=== PATIENT | male | born 1950 | race Caucasian/White ===

== ENCOUNTER 2019-03-18 16:48 | Inpatient (IN) ==
[2019-03-18] MEDS ORDERED: methylPREDNISolone 125 MG/2 ML VIAL IV STA (16:58)
[2019-03-18] MEDS ORDERED: ALBUT/IPRATROP 3MG/0.5MG NEB 3 ML VIAL INH STA (16:58)
[2019-03-18 17:17] LABS: Basophils # (auto) 0.03 K/uL (0-0.2); Basophils % (auto) 0.3 %; Eosinophils # (auto) 0.04 K/uL (0-0.5); Eosinophils % (auto) 0.3 %; Hematocrit (blood only) 41.9 % (42-52); Hemoglobin 14.8 g/dL (14.0-18.0); Immature Granulocytes # (auto) 0.03 K/uL (0.00-0.02); Immature Granulocytes % (auto) 0.3 %; Lymphocytes # (auto) 1.98 K/uL (1.2-3.4); Lymphocytes % (auto) 17.1 %; Mean Corpuscular Hemoglobin 31.7 pg (25-34); Mean Corpuscular Hgb Conc 35.3 g/dL (32-36); Mean Corpuscular Volume 89.7 fL (80-100); Mean Platelet Volume 9.4 fL (7.4-10.4); Monocytes # (auto) 1.25 K/uL (0.11-0.59); Monocytes % (auto) 10.8 %; Neutrophils # (auto) 8.28 K/uL (1.4-6.5); Neutrophils % (auto) 71.2 %; Platelet Count 198 K/uL (130-400); RDW Coefficient of Variation 12.5 % (11.5-14.5); RDW Standard Deviation 40.9 fL (36.4-46.3); Red Blood Count 4.67 M/uL (4.7-6.1); White Blood Count 11.61 K/uL (4.8-10.8)
[2019-03-18 17:24] LABS: Partial Thromboplastin Ratio 1.1; Partial Thromboplastin Time 28.5 Seconds (21.0-31.0); Prothrombin Time 10.5 Seconds (9.0-12.0)
[2019-03-18 17:38] LABS: Alanine Aminotransferase 36 U/L (12-78); Albumin Level 3.8 gm/dl (3.4-5.0); Aspartate Aminotransferase 18 U/L (15-37); BUN Creatinine Ratio 13.5 (10-20); Blood Urea Nitrogen 18 mg/dl (7-18); Calcium 9.6 mg/dl (8.5-10.1); Carbon Dioxide 26 mmol/L (21-32); Chloride 98 mmol/L (98-107); Creatinine Clr Calc Pharmacy 60.6 ml/min; Est GFR (African American) 61.5; Est GFR (Non-African American) 53.1; Glucose 174 mg/dl (70-99); Potassium 4.1 mmol/L (3.5-5.1); Sodium 131 mmol/L (136-145)
[2019-03-18 17:43] LABS: Albumin Globulin Ratio 0.8 (0.9-2); Alkaline Phosphatase 136 U/L (45-117); Bilirubin,Total 0.7 mg/dl (0.2-1); NT Pro B Type Natriuretic Pept 107 pg/ml (0-900); Total Protein 8.8 gm/dl (6.4-8.2); Troponin I < 0.015 ng/ml (0-0.045)
--- NOTE | 2019-03-18 18:09 | XRay Report ---
XR chest 1V portable CLINICAL HISTORY: Dyspnea COMPARISON STUDY: None FINDINGS: Mild cardiac enlargement. Basilar parenchymal infiltrative change. Minimal upper lungs are clear. IMPRESSION: Mild bibasilar parenchymal infiltrates. ACT 112: Negative or not required by law. The above report was generated using voice recognition software. It may contain grammatical, syntax or spelling errors. Electronically signed by: David Mckeon M.D. 03/18/2019 6:08 PM
[2019-03-18] MEDS ORDERED: PIPERACILLIN/TAZOBACTAM 4.5 GM/120 ML BAG IV ONE (18:31)
[2019-03-18] MEDS ORDERED: PIPERACILL/TAZOBAC CONSULT ACTIVE PRN ×2 (18:31→21:34)
[2019-03-18] MEDS ORDERED: DOXYCYCLINE HYCLATE 100 MG in DEXTROSE 5% 100 ML IV STA (18:31)
[2019-03-18 18:38] LABS: Influenza A virus by PCR Neg for Influ A (Neg); Influenza B virus by PCR Neg for Influ B (Neg)
[2019-03-18 19:03] LABS: Appearance Urine Clear (Clear); Bacteria Urine Automated Negative (Negative); Bilirubin Urine Negative (Negative); Blood Urine 1+ (Negative); Cast Urine Automated 0 /lpf (0-5); Color Urine Yellow; Epithelial Cell Urine Auto 0-5 /lpf (0-5); Glucose Urine UA 1+ (Negative); Ketones Urine 2+ (Negative); Leukocyte Esterase Urine Negative (Negative); Nitrite Urine Negative (Negative); Protein Urine 2+ (Negative); RBC Urine Automated 0-4 /hpf (0-4); Specific Gravity Urine 1.021 (1.000-1.030); Urobilinogen Urine Negative (Negative); WBC Urine Automated 0 /hpf (0-5)
[2019-03-18] MEDS ORDERED: ALBUTEROL HFA 8 GM INHALER INH PRN (20:16)
[2019-03-18] MEDS ORDERED: MECLIZINE HCL 25 MG TAB PO PRN (20:16)
[2019-03-18] MEDS ORDERED: PANCREAZE (LIPASE 10,500U) CAP PO PRN (20:30)
[2019-03-18] MEDS ORDERED: cloNIDine HCL 0.1 MG TAB PO PRN (21:34)
[2019-03-18] MEDS ORDERED: LORazepam 3 MG/6 ML VIAL IV PRN (21:34)
[2019-03-18] MEDS ORDERED: ATIVAN IV ALCOHOL WITHDRAWL IV PRN (21:34)
[2019-03-18] MEDS ORDERED: LORazepam 2 MG/4 ML VIAL IV PRN (21:34)
[2019-03-18] MEDS ORDERED: NITROGLYCERIN SL 0.4 MG/TAB TAB SL PRN (21:34)
[2019-03-18] MEDS ORDERED: LORazepam 1 MG/2 ML VIAL IV PRN (21:34)
[2019-03-18] MEDS ORDERED: ONDANSETRON INJ 2 MG/ML 2 ML VIAL IV PRN (21:34)
[2019-03-18] MEDS ORDERED: ACETAMINOPHEN 325 MG TAB PO PRN (21:34)
[2019-03-18] MEDS ORDERED: POLYETHYLENE (MIRALAX) 17 GM PACK PO PRN (21:34)
[2019-03-18] MEDS ORDERED: GABAPENTIN 1200MG ALCOHOL WITHDRAWAL LOAD PO STA (21:34)
[2019-03-18] MEDS ORDERED: GABAPENTIN 600 MG TAB PO ONE (22:00)
[2019-03-18] MEDS ORDERED: MULTI-VITAMIN INFUSION 10 ML, THIAMINE HCL 100 MG, FOLIC ACID 1 MG in SODIUM CHLORIDE 0... IV ONE (22:00)
[2019-03-18] MEDS: SODIUM CHLORIDE 0.9% 1000ML 1,000 ML IV SCH (22:13)
--- NOTE | 2019-03-18 22:28 | History and Physical Report ---
DATE OF ADMISSION: 03/18/2019 CHIEF COMPLAINT: Shortness of breath. HISTORY OF PRESENT ILLNESS: A 69-year-old male with past medical history significant for diabetes, hypertension as per patient, denies any cardiac problems, denies any lung problems, denies any kidney problems. He goes to [place]. He lives alone. He smokes 1 pack of cigarettes for 50 years. Drinks alcohol, 6 beers almost every day whenever he can go out, but in last 1 week he did not go out and he is not drinking since last 1 week as per the patient, but is not getting any withdrawal symptoms. Since last 5 days, he is getting short of breath, once in a while cough, not bringing any phlegm. He thinks maybe he had a fever at home and was getting more short of breath. He got worried and came to the hospital and found to have mild bibasilar infiltrates, possible chronic obstructive pulmonary disease exacerbation. Received breathing treatments and steroids and antibiotics. Currently, somewhat feeling better. Oxygen saturations are okay. Denies any headache, no blurred vision, no earache, no runny nose, has some sore throat, no difficulty swallowing. No odynophagia. Did not have much appetite for the last 5 days, but today he is feeling hungry. Denies any chest pain. No recent weight gain, weight loss. No sweating, no nausea, no vomiting, no abdominal pain. Normal bowel and bladder movements. No blood in stools or black stools. No burning micturition, no hematuria. No swelling in the legs, no rash. Currently resting comfortably and hemodynamically stable. ALLERGIES: No known drug allergies. PAST MEDICAL HISTORY: As mentioned above. PAST SURGICAL HISTORY: He had a left total hip replacement, rhinoplasty, exploratory laparotomy with appendectomy. MEDICATIONS: Does not remember, but he thinks he is on Tylenol 650 mg p.o. b.i.d. p.r.n., albuterol inhalation 2 puffs q.i.d. p.r.n., ascorbic acid 500 mg p.o. daily, aspirin 81 mg p.o. daily, vitamin D 600 mg p.o. daily, donepezil 5 mg at bedtime, Creon 2 tablets p.o. t.i.d. with meals and with snacks, metformin 500 mg p.o. b.i.d. FAMILY HISTORY: He says his parents are sick but does not remember what they had, they are long time back. SOCIAL HISTORY: Smokes 1 pack a day for many, many years, at least 50 years. Drinks 6 pints of beer almost every day whenever he can go out. REVIEW OF SYMPTOMS: As per HPI. Rest of review of symptoms are negative. PHYSICAL EXAMINATION: GENERAL: The patient is of moderate build, not in acute distress. VITAL SIGNS: Temperature 37.2, pulse 82, respiratory rate 15, blood pressure 155/82, oxygen 93% on 2 liters. HEENT: No pallor, no icterus. Pupils equal, round, reactive to light. NECK: No JVD, no neck masses, no carotid bruit. CARDIOVASCULAR: S1, S2 heard, regular rate and rhythm, no murmur, no gallop. RESPIRATORY SYSTEM: Normal AP diameter. No accessory muscle use. Bilateral rhonchi. No wheezing. ABDOMEN: Soft, bowel sounds present, nontender. No distention. CENTRAL NERVOUS SYSTEM: Cranial nerves II-XII grossly intact, nonfocal. EXTREMITIES: No edema, no erythema. LABORATORY DATA: WBC 11.6, hemoglobin 14.8, hematocrit 41.9, platelets 198. PT 10.5, INR 1, APTT 28.5. Sodium 131, potassium 4.1, chloride 98, bicarbonate 26, BUN 18, creatinine 1.3, serum glucose 174, calcium 9.6, magnesium 2, total bilirubin 0.7, AST 18, ALT 36, alkaline phosphatase 136. Troponin I less than 0.015. BNP 107. Urinalysis +1 blood. Influenza A and B PCR negative. IMAGING DATA: Chest x-ray mild bibasilar parenchymal infiltrates. EKG: Normal sinus rhythm, rate of 85, no previous EKG available. ASSESSMENT AND PLAN: This is a 69-year-old male who presents with shortness of breath, mild bibasilar infiltrates and chronic obstructive pulmonary disease exacerbation. 1. Shortness of breath: Most likely from chronic obstructive pulmonary disease exacerbation and mild bibasilar infiltrates, possible pneumonia. In the ER, he was started on IV Zosyn and IV doxycycline which we will continue. Questionable aspiration, patient has history of alcoholism. We will also treat his chronic obstructive pulmonary disease exacerbation with IV Solu-Medrol 40 t.i.d., nebs round the clock and p.r.n., antibiotics as above. Close monitor in Med/Surg Tele. 2. Diabetes: We will hold metformin and glipizide.Place him on Lantus and insulin sliding scale. Will monitor blood sugar while he is on steroids. 3. The patient says history of hypertension: On lisinopril. Will monitor. 4. Alcoholism: He says he drinks 6 beers almost every day whenever he can go out, but he did not go out for the last one week, did not get withdrawal symptoms but we will put him on gabapentin protocol, banana bag, IV thiamine, IV folic acid, multivitamins, IV Ativan p.r.n. Monitor for any withdrawal symptoms and clonidine p.r.n. 5. Deep venous thrombosis prophylaxis, sequential compression devices for now. 6. Disposition: Close monitoring in Med/Surg Tele. Level 1 full code. MTDD
[2019-03-18] MEDS ORDERED: INSULIN GLARGINE SOLOSTAR 100 UNITS/ML 3 ML PEN SC SCH (22:30)
[2019-03-18] MEDS ORDERED: ZOLPIDEM TARTRATE 5 MG TAB PO PRN (22:41)
[2019-03-18] MEDS ORDERED: INSULIN HUMAN REGULAR PER UNIT 5 UNITS in SYRINGE 4.95 ML IV ONE (22:45)
--- NOTE | 2019-03-18 22:48 | Emergency Department Note ---
Entered by Karin Mojica acting as a scribe for Jose Manuel Mckeon MD ED Provider Note CHIEF COMPLAINT: Shortness of breath HISTORY OF PRESENT ILLNESS: The patient is a 69 year old male who presents to the Emergency Room with comp laints of shortness of breath for the past 5 days. Per EMS, the patient has a history of COPD. They report that the patient has had a productive cough and shortness of breath for the past 5 days. They note that he patient has fever and chills. They state that the patient went to the [place] today and he had a fever of 100.2 and chest pain so they referred him to the ED. They report that the patient does not wear oxygen at home. The patient reports that he has been experiencing abdominal pain and fatigue. He reports that he occasionally coughs up phlegm. He notes that he has inhalers that he uses at home. He denies any history of pneumonia and bronchitis. He mentions that he still smokes. Per jose rds reviewed, the patient received flu vaccination recently and his O2 stat was 83%. Pt denies LOC, headache, diaphoresis, visual changes, neck pain, nausea, vomiting, back pain, melena, hematochezia, urinary symptoms, numbness, weakness, lymphadenopathy, rash, or other complaints. REVIEW OF SYSTEMS: See HPI for pertinent positives and negatives. A total of ten systems were reviewed and were otherwise negative. PMHx/PSHx: COPD SOCIAL HISTORY: Patient lives at home. PHYSICAL EXAM: GENERAL: Awake, alert, well-appearing, dyspneic HENT: Normocephalic, atraumatic. Oropharynx unremarkable. EYES: PERRL. Normal conjunctiva. Sclera non-icteric. NECK: Inspection normal. Non-tender. Supple. No nuchal rigidity. FROM. No masses. RESPIRATORY: Coarse breath sounds bilaterally. Bilateral wheezes. No rales. Normal respiratory effort. CARDIAC: Normal rate. Normal rhythm. No murmurs. No rubs. Extremities warm and well perfused. Pulses equal. No JVD. GI: Soft, non-distended. No tenderness to palpation. No rebound or guarding. No masses. RECTAL: Deferred. MUSCULOSKELETAL: Atraumatic. Chest examination reveals no tenderness. The back is symmetrical on inspection without obvious abnormality. There is no CVA tenderness to palpation. No joint edema. LOWER EXTREMITIES: Calves are equal size bilaterally and non-tender. No edema. No discoloration. NEURO: Normal sensorium. No sensory or motor deficits noted. SKIN: No rash or jaundice noted. EMERGENCY DEPARTMENT COURSE: 1651: Past medical records reviewed. The patient was evaluated in room C6, and a complete history and physical examination were performed. EKG prior to hospital reads sinus rhythm, rate of 83, septal Q waves, and no ST elevation. 1834: I reevaluated the patient and updated him on his results. 1839: I discussed the patient's case with Dr. Rogers- [facility] [place] Hospitalist, he will accept the patient for further evaluation. CRITICAL CARE I have personally spent 35 minutes of critical care time in the direct management of this patient. This includes bedside care, interpretation of diag nostic studies, and testing, discussion with consultants, patient, and other required patient management activities. This 35 minutes is in excess of all separately billable procedures. MEDICAL DECISION MAKING: Prior records/ancillary studies reviewed. Triage Nursing notes reviewed and agree them. Additional history obtained from the family. The patient's history was concerning for shortness of breath. Differential diagnosis: Etiologies such as pneumonia, COPD, reactive airway disease, CHF, cardiac ischemia, pulmonary embolism, pneumothorax, musculoskeletal, infections, gastrointestinal, as well as others were entertained. Physical examination: As above. Coarse breath sounds. ER treatment provided: DuoNeb Solu-Medrol IV Zosyn IV doxycycline On reassessment the patient felt better. Diagnostic interpretation by me: The electrocardiogram was negative for pathologic change. The labs revealed a mild leukocytosis on CBC. Chemistry panel unremarkable. Troponin negative. Blood cultures pending. Imaging studies: Chest x-ray concerning for pneumonia. The patient had hypoxia. He had pneumonia. He is a leukocytosis. He does have a history of alcohol use. Because of this he was treated with IV doxycycline as well as IV Zosyn. Due to his hypoxia further management in the hospital will be necessary. Consultation: A consultation was placed with the hospitalist. The case was discussed and diagnostics were reviewed. The patient was evaluated in the ER for further treatment. IMPRESSION: Leukocytosis, bilateral lower lobe pneumonia, and hypoxia PLAN: Admitted The scribe's documentation has been prepared under my direction and personally reviewed by me in its entirety. I confirm that the note above accurately reflects all work, treatment, procedures, and medical decision making performed by me. 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 Beliefs That Will Affect Care: None Current Living Situation: Alone Other Information That Helps Us Care for You: No Feels Safe at Home: Yes Safety Concerns: Feels Safe At This Time Smoking Status: Current every day smoker Tobacco Type: cigarettes ; Cigarettes Per Day: 20 ; Do You Dip or Chew Tobacco: No ; Hx Alcohol Use: Yes Alcohol type: beer Hx Substance Use: No Results & Data Vital Signs Vital Signs - 24 hr 03/18/19 17:03 03/18/19 17:08 03/18/19 17:10 Temperature 37.2 C Temperature Source Oral Pulse Rate 86 Pulse Rate [Apical] 87 Respiratory Rate 22 24 Respiratory Effort / Characteristics Non-Labored Spontaneous Respiratory Depth Normal Respiratory Pattern Blood Pressure 167/77 H Blood Pressure [Right Arm] Blood Pressure Mean 107 Blood Pressure Mean [Right Arm] Blood Pressure Position [Right Arm] Pulse Oximetry 91 90 94 Oxygen Delivery Method Room Air Room Air Nasal Cannula Oxygen Flow Rate 2 Sepsis Recent Fever Within 48 Hours No Sepsis New/Unexplained Change in Mental Status No Sepsis Action Taken by Nursing No Action Required Oxygen Flow Rate - Titration 2 Pulse Oximetry Post Tiitration 96 03/18/19 17:40 03/18/19 18:13 03/18/19 19:18 Temperature Temperature Source Pulse Rate Pulse Rate [Apical] 90 82 Respiratory Rate 22 15 Respiratory Effort / Characteristics Non-Labored Spontaneous Respiratory Depth Normal Respiratory Pattern Regular Blood Pressure Blood Pressure [Right Arm] 140/68 155/82 H Blood Pressure Mean Blood Pressure Mean [Right Arm] 92 106 Blood Pressure Position [Right Arm] Lying Pulse Oximetry 96 90 93 Oxygen Delivery Method Nasal Cannula Nasal Cannula Room Air Oxygen Flow Rate 2 2 2 Sepsis Recent Fever Within 48 Hours Sepsis New/Unexplained Change in Mental Status Sepsis Action Taken by Nursing Oxygen Flow Rate - Titration Pulse Oximetry Post Tiitration 03/18/19 20:00 Temperature Temperature Source Pulse Rate Pulse Rate [Apical] 88 Respiratory Rate 20 Respiratory Effort / Characteristics Non-Labored Spontaneous Respiratory Depth Normal Respiratory Pattern Regular Blood Pressure Blood Pressure [Right Arm] 173/79 H Blood Pressure Mean Blood Pressure Mean [Right Arm] 110 Blood Pressure Position [Right Arm] Pulse Oximetry 94 Oxygen Delivery Method Room Air Oxygen Flow Rate Sepsis Recent Fever Within 48 Hours Sepsis New/Unexplained Change in Mental Status Sepsis Action Taken by Nursing Oxygen Flow Rate - Titration Pulse Oximetry Post Tiitration Home Medications Current Medication List: was personally reviewed by me Laboratory Data Attestation: I reviewed the patient's lab results. Result diagrams: 03/18/19 16:35 03/18/19 16:35 Lab Results 03/18/19 03/18/19 03/18/19 Range/Units 16:35 16:35 16:35 WBC 11.61 H (4.8-10.8) K/uL RBC 4.67 L (4.7-6.1) M/uL Hgb 14.8 (14.0-18.0) g/dL Hct 41.9 L (42-52) % MCV 89.7 (80-100) fL MCH 31.7 (25-34) pg MCHC 35.3 (32-36) g/dL RDW Std Deviation 40.9 (36.4-46.3) fL RDW Coeff of Steve 12.5 (11.5-14.5) % Plt Count 198 (130-400) K/uL MPV 9.4 (7.4-10.4) fL Immature Gran % (Auto) 0.3 % Neut % (Auto) 71.2 % Lymph % (Auto) 17.1 % Johnson % (Auto) 10.8 % Eos % (Auto) 0.3 % Baso % (Auto) 0.3 % Immature Gran # (Auto) 0.03 H (0.00-0.02) K/uL Neut # (Auto) 8.28 H (1.4-6.5) K/uL Lymph # (Auto) 1.98 (1.2-3.4) K/uL Johnson # (Auto) 1.25 H (0.11-0.59) K/uL Eos # (Auto) 0.04 (0-0.5) K/uL Baso # (Auto) 0.03 (0-0.2) K/uL PT 10.5 (9.0-12.0) Seconds INR 1.0 (0.9-1.1) APTT 28.5 (21.0-31.0) Seconds PTT Ratio 1.1 Sodium 131 L (136-145) mmol/L Potassium 4.1 (3.5-5.1) mmol/L Chloride 98 (98-107) mmol/L Carbon Dioxide 26 (21-32) mmol/L Anion Gap 8.0 (3-11) BUN 18 (7-18) mg/dl Creatinine 1.36 (0.6-1.4) mg/dl Est Cr Clr Drug Dosing 60.6 ml/min Est GFR ( Amer) 61.5 Est GFR (Non-Af Amer) 53.1 BUN/Creatinine Ratio 13.5 (10-20) Glucose 174 H (70-99) mg/dl POC Glucose (70-99) mg/dl Calcium 9.6 (8.5-10.1) mg/dl Magnesium 2.0 (1.8-2.4) mg/dl Total Bilirubin 0.7 (0.2-1) mg/dl AST 18 (15-37) U/L ALT 36 (12-78) U/L Alkaline Phosphatase 136 H (45-117) U/L Troponin I < 0.015 (0-0.045) ng/ml NT-Pro-B Natriuret Pep 107 (0-900) pg/ml Total Protein 8.8 H (6.4-8.2) gm/dl Albumin 3.8 (3.4-5.0) gm/dl Globulin 5.0 H (2.5-4.0) gm/dl Albumin/Globulin Ratio 0.8 L (0.9-2) Urine Color Urine Appearance (Clear) Urine pH (4.5-7.5) Ur Specific Melvin (1.000-1.030) Urine Protein (Negative) Urine Glucose (UA) (Negative) Urine Ketones (Negative) Urine Blood (Negative) Urine Nitrite (Negative) Urine Bilirubin (Negative) Urine Urobilinogen (Negative) Ur Leukocyte Esterase (Negative) Urine WBC (Auto) (0-5) /hpf Urine RBC (Auto) (0-4) /hpf U Hyaline Cast (Auto) (0-5) /lpf U Epithel Cells (Auto) (0-5) /lpf Urine Bacteria (Auto) (Negative) Influenza Type A (PCR) (Neg) Influenza Type B (PCR) (Neg) 03/18/19 03/18/19 03/18/19 Range/Units 17:52 18:40 20:00 WBC (4.8-10.8) K/uL RBC (4.7-6.1) M/uL Hgb (14.0-18.0) g/dL Hct (42-52) % MCV (80-100) fL MCH (25-34) pg MCHC (32-36) g/dL RDW Std Deviation (36.4-46.3) fL RDW Coeff of Steve (11.5-14.5) % Plt Count (130-400) K/uL MPV (7.4-10.4) fL Immature Gran % (Auto) % Neut % (Auto) % Lymph % (Auto) % Johnson % (Auto) % Eos % (Auto) % Baso % (Auto) % Immature Gran # (Auto) (0.00-0.02) K/uL Neut # (Auto) (1.4-6.5) K/uL Lymph # (Auto) (1.2-3.4) K/uL Johnson # (Auto) (0.11-0.59) K/uL Eos # (Auto) (0-0.5) K/uL Baso # (Auto) (0-0.2) K/uL PT (9.0-12.0) Seconds INR (0.9-1.1) APTT (21.0-31.0) Seconds PTT Ratio Sodium (136-145) mmol/L Potassium (3.5-5.1) mmol/L Chloride (98-107) mmol/L Carbon Dioxide (21-32) mmol/L Anion Gap (3-11) BUN (7-18) mg/dl Creatinine (0.6-1.4) mg/dl Est Cr Clr Drug Dosing ml/min Est GFR ( Amer) Est GFR (Non-Af Amer) BUN/Creatinine Ratio (10-20) Glucose (70-99) mg/dl POC Glucose 234 H (70-99) mg/dl Calcium (8.5-10.1) mg/dl Magnesium (1.8-2.4) mg/dl Total Bilirubin (0.2-1) mg/dl AST (15-37) U/L ALT (12-78) U/L Alkaline Phosphatase (45-117) U/L Troponin I (0-0.045) ng/ml NT-Pro-B Natriuret Pep (0-900) pg/ml Total Protein (6.4-8.2) gm/dl Albumin (3.4-5.0) gm/dl Globulin (2.5-4.0) gm/dl Albumin/Globulin Ratio (0.9-2) Urine Color Yellow Urine Appearance Clear (Clear) Urine pH 5.0 (4.5-7.5) Ur Specific Melvin 1.021 (1.000-1.030) Urine Protein 2+ H (Negative) Urine Glucose (UA) 1+ H (Negative) Urine Ketones 2+ H (Negative) Urine Blood 1+ H (Negative) Urine Nitrite Negative (Negative) Urine Bilirubin Negative (Negative) Urine Urobilinogen Negative (Negative) Ur Leukocyte Esterase Negative (Negative) Urine WBC (Auto) 0 (0-5) /hpf Urine RBC (Auto) 0-4 (0-4) /hpf U Hyaline Cast (Auto) 0 (0-5) /lpf U Epithel Cells (Auto) 0-5 (0-5) /lpf Urine Bacteria (Auto) Negative (Negative) Influenza Type A (PCR) Neg for Influ A (Neg) Influenza Type B (PCR) Neg for Influ B (Neg) Administered Medications Sodium Chloride (Nss 1000ml) 1,000 mls @ 100 mls/hr IV .Q10H SERA Stop: 04/17/19 21:33 Last Admin: 03/18/19 22:13 Dose: 100 mls/hr Documented by: [id number] Discontinued Medications Albuterol (Duoneb) 3 ml INH NOW STA Stop: 03/18/19 16:59 Last Admin: 03/18/19 17:10 Dose: 3 ml Documented by: [id number] Piperacillin Sod/Tazobactam Sod (Zosyn) 4.5 gm in 120 mls @ 240 mls/hr IV NOW ONE Stop: 03/18/19 19:00 Last Infusion: 03/18/19 19:49 Dose: 0 mls/hr Documented by: [id number] Admin: 03/18/19 19:19 Dose: 240 mls/hr Documented by: [id number] Doxycycline Hyclate 100 mg/ (Dextrose) 110 mls @ 50 mls/hr IV NOW STA Stop: 03/18/19 20:42 Last Infusion: 03/18/19 22:14 Dose: 0 mls/hr Documented by: [id number] Admin: 03/18/19 20:01 Dose: 50 mls/hr Documented by: [id number] Methylprednisolone (Solumedrol) 125 mg IV NOW STA Stop: 03/18/19 16:59 Last Admin: 03/18/19 18:13 Dose: 125 mg Documented by: [id number] Miscellaneous Information (Consult) 1 ea N/A UD PRN PRN Reason: Consult Stop: 04/17/19 18:30 Last Admin: 03/18/19 20:01 Dose: 1 ea Documented by: [id number] Imaging Data Radiologist's Impression: Radiology results as stated below per my review and the radiologist's interpretation: XR chest 1V portable CLINICAL HISTORY: Dyspnea COMPARISON STUDY: None FINDINGS: Mild cardiac enlargement. Basilar parenchymal infiltrative change. Minimal upper lungs are clear. IMPRESSION: Mild bibasilar parenchymal infiltrates. ACT 112: Negative or not required by law. The above report was generated using voice recognition software. It may contain grammatical, syntax or spelling errors. Electronically signed by: David Mckeon M.D. 03/18/2019 6:08 PM ECG Data Attestation: I personally reviewed and interpreted this ECG as follows: Indication: + SOB/dyspnea Rate (beats per minute): 85 Rhythm: normal sinus ECG ST segments: no ST depression and no ST elevation ECG Findings: + Q waves (septal ); no PACs and no PVCs Blood Pressure Blood Pressure Findings: Elevated blood pressure Blood Pressure Disposition: further management by hospitalist Discharge Plan Visit Data *Final* Discharge Date/Time: 03/18/19 20:45 Chief Complaint: Shortness of Breath/Dyspnea Stated Complaint: SOB ED Provider: Jose Manuel Mckeon Discharge Problem: Pneumonia of both lower lobes, Hypoxia, Leukocytosis Patient Disposition: Admitted As Inpatient Discharge Instructions Interventions: ED Discharge Assessment Last Done: 03/18/19 20:45 Discharge Problem: Pneumonia of both lower lobes Qualifiers: Pneumonia type: due to unspecified organism Qualified Code(s): J18.9 - Pneumonia, unspecified organism Leukocytosis Qualifiers: Leukocytosis type: unspecified Qualified Code(s): D72.829 - Elevated white blood cell count, unspecified The scribe's documentation has been prepared under my direction and personally reviewed by me in its entirety. I confirm that the note above accurately reflects all work, treatment, procedures, and medical decision making performed by me.
[2019-03-18] MEDS: DONEPEZIL HCL 5 MG TAB PO SCH (22:57)
[2019-03-18] MEDS: INSULIN ASPART 100 UNITS/ML 3 ML PEN SC SCH (22:58)
[2019-03-19] MEDS ORDERED: INSULIN HUMAN REGULAR PER UNIT 3 UNITS in SYRINGE 2.97 ML IV ONE (00:45)
[2019-03-19] MEDS ORDERED: XOPENEX/ATROVENT 1.25mg/0.5MG NEB COMBO NEB SCH (01:00)
[2019-03-19] MEDS: PIPERACILLIN/TAZOBACTAM 3.375 GM in DEXTROSE 5% 100 ML IV SCH ×4 (01:15→23:38)
[2019-03-19] MEDS: LEVALBUTEROL 1.25MG/0.5ML NEB INH SCH ×4 (01:34→20:08)
[2019-03-19] MEDS: IPRATROPIUM BROMIDE NEB SOLN 0.02% 2.5 ML VIAL INH SCH ×4 (01:34→20:08)
[2019-03-19] MEDS ORDERED: methylPREDNISolone 40 MG in SYRINGE 0 ML IV SCH (04:00)
[2019-03-19] MEDS: GABAPENTIN 600 MG TAB PO SCH ×4 (05:04→17:33)
[2019-03-19 06:02] LABS: Basophils # (auto) 0.01 K/uL (0-0.2); Basophils % (auto) 0.1 %; Hematocrit (blood only) 41.3 % (42-52); Hemoglobin 14.6 g/dL (14.0-18.0); Immature Granulocytes # (auto) 0.02 K/uL (0.00-0.02); Immature Granulocytes % (auto) 0.3 %; Lymphocytes # (auto) 1.15 K/uL (1.2-3.4); Lymphocytes % (auto) 14.4 %; Mean Corpuscular Hemoglobin 32.1 pg (25-34); Mean Corpuscular Hgb Conc 35.4 g/dL (32-36); Mean Corpuscular Volume 90.8 fL (80-100); Mean Platelet Volume 9.4 fL (7.4-10.4); Monocytes # (auto) 0.22 K/uL (0.11-0.59); Monocytes % (auto) 2.8 %; Neutrophils # (auto) 6.57 K/uL (1.4-6.5); Neutrophils % (auto) 82.4 %; Platelet Count 214 K/uL (130-400); RDW Coefficient of Variation 12.5 % (11.5-14.5); RDW Standard Deviation 41.5 fL (36.4-46.3); Red Blood Count 4.55 M/uL (4.7-6.1); White Blood Count 7.97 K/uL (4.8-10.8)
[2019-03-19 06:46] LABS: BUN Creatinine Ratio 13.7 (10-20); Calcium 9.1 mg/dl (8.5-10.1); Creatinine Clr Calc Pharmacy 53.1 ml/min; Est GFR (African American) 52.1; Magnesium 2.4 mg/dl (1.8-2.4); Potassium 3.3 mmol/L (3.5-5.1)
[2019-03-19 06:58] LABS: Beta-Hydroxybutyrate 3.56 mg/dl (0.2-2.81)
[2019-03-19] MEDS: INSULIN ASPART 100 UNITS/ML 3 ML PEN SC SCH ×4 (08:20→21:21)
[2019-03-19] MEDS: SODIUM CHLORIDE 0.9% 1000ML 1,000 ML IV SCH (08:21)
[2019-03-19 08:22] LABS: Vitamin B12 628 pg/ml (211-911)
[2019-03-19 08:23] LABS: Folate (Folic Acid) > 24.00 ng/ml (>5.38)
[2019-03-19] MEDS: PANCREAZE (LIPASE 10,500U) CAP PO SCH ×3 (08:25→17:33)
[2019-03-19] MEDS: ASPIRIN 81 MG ECTAB PO SCH (08:25)
[2019-03-19] MEDS: FERROUS SULFATE 325 MG TAB PO SCH (08:26)
[2019-03-19] MEDS: MELOXICAM 7.5 MG TAB PO SCH (08:26)
[2019-03-19] MEDS: DOXYCYCLINE HYCLATE 100 MG in DEXTROSE 5% 100 ML IV SCH ×2 (08:26→21:20)
[2019-03-19] MEDS: CHOLECALCIFEROL 1,000 UNITS TAB PO SCH (08:26)
[2019-03-19] MEDS: lisinopriL 20 MG TAB PO SCH (08:26)
[2019-03-19] MEDS: ASCORBIC ACID 500 MG TAB PO SCH (08:26)
[2019-03-19] MEDS: FOLIC ACID 1 MG in SYRINGE 9.8 ML IV SCH (08:27)
[2019-03-19] MEDS: THIAMINE HCL 100 MG in SYRINGE 9 ML IV SCH (08:27)
[2019-03-19] MEDS: NICOTINE 21 MG/24 HR TDSY TD SCH (08:53)
[2019-03-19] MEDS ORDERED: INSULIN GLARGINE SOLOSTAR 100 UNITS/ML 3 ML PEN SC SCH ×2 (09:00→21:00)
--- NOTE | 2019-03-19 09:07 | Electrocardiogram Report ---
Test Reason : Blood Pressure : / mmHG Vent. Rate : 085 BPM Atrial Rate : 085 BPM P-R Int : 180 ms QRS Dur : 074 ms QT Int : 334 ms P-R-T Axes : 053 072 060 degrees QTc Int : 397 ms Poor data quality, interpretation may be adversely affected Normal sinus rhythm Poor R wave progression, consider anterior LA vs. lead placement vs. LVH Abnormal ECG No previous ECGs available Confirmed by Mumtaz Orozco ([id number]) on 03/19/2019 9:06:54 AM Referred By: REFERRED SELF Confirmed By:Mumtaz Orozco
[2019-03-19] MEDS ORDERED: INSULIN GLARGINE SOLOSTAR 100 UNITS/ML 3 ML PEN SC ONE ×2 (09:20→12:15)
[2019-03-19] MEDS: CEROVITE ADV FORMULA TAB PO SCH (09:38)
[2019-03-19] MEDS ORDERED: PHARMACY GLYCEMIC MGMT CONSULT PRN (11:53)
[2019-03-19] MEDS ORDERED: INSULIN HUMAN REGULAR PER UNIT 7 UNITS in SYRINGE 6.93 ML IV ONE ×2 (12:15→12:30)
[2019-03-19] MEDS ORDERED: POTASSIUM CHLORIDE 20 MEQ TABCR PO ONE ×2 (12:45→17:00)
--- NOTE | 2019-03-19 14:28 | Pharmacy Report ---
Glycemic Control Consultation - Date of Service March 19, 2019 - Scope Scope: Glycemic Pharmacist consulted by Dr Oconnell on 03/19/2019 for glycemic control and to write orders per [facility] inpatient glycemic control protocol - Objective Weight: 77.1 kg Accuchecks BSG (last 24hrs): 03/18/19 03/18/19 03/18/19 16:35 20:00 22:12 Glucose 174 H POC Glucose 234 H 533 H* 03/18/19 03/19/19 03/19/19 22:15 00:05 01:55 Glucose POC Glucose 501 H* 401 H* 329 H* 03/19/19 03/19/19 03/19/19 05:21 08:15 08:17 Glucose 322 H* POC Glucose 320 H* 315 H* 03/19/19 03/19/19 11:27 11:32 Glucose POC Glucose 423 H* 447 H* Laboratory Data (last 24hrs): 03/18/19 03/19/19 16:35 05:21 Potassium 4.1 3.3 L D Carbon Dioxide 26 25 Anion Gap 8.0 8.0 Creatinine 1.36 1.56 H Est Cr Clr Drug Dosing 60.6 53.1 Beta-Hydroxybutyric Acd 3.56 H - Recent Pertinent Medications Outpatient Anti-diabetic Regimen: * glipizide 5 mg PO daily * metformin 1 g PO BIDM * A1c pending for tomorrow morning The patient is currently receiving: * Basal insulin: Lantus 10 units every 12 hours * Correctional Insulin: Novolog Correction per scale ACHS Goal Range: Low 110 mg/dL - High 140 mg/dL Correction Factor: 30 mg/dL/unit * Prandial insulin: Per carb ratio of 1 unit per 10 grams CHO consumed Risk Factors for Insulin Resistance: * Steroids: SM 40 mg IV q12h * Infection: Zosyn + Doxycycline * IVF: NSS @75 mL/hr * Diet: T2DM - Assessment & Plan Assessment & Plan: ASSESSMENT: * BLANCHE is a 69 year old female admitted to [facility] on 03/18/2019 with a chief complaint of shortness of breath * Pharmacy consulted for glycemic management at lunchtime on 03/19/2019 * BSG of 447 at this time - Lantus, Novolog, and 7 unit (0.1 unit/kg) IV insulin bolus given at this time * Potassium chloride 40 mEq x 1 + 20 mEq x 1 @1700 given due to IV insulin bolus and K+ of 3.3 * BSGs since admission ranging 234-533 mg/dL * Patient on Solu-medrol 40 mg IV q12h and Zosyn for treatment of possible pulmonary infection PLAN FOR INPATIENT GLYCEMIC CONTROL: * Holding outpatient oral diabetes medications * Basal insulin * Lantus 10 units given this morning * Additional 20 units given at lunchtime * Will order 19 units BID starting this evening (weight-based stress of 3 dosing) * Bolus insulin * NovoLog per scale ACHS or Q6hrs while NPO * Goal Range: Low 110 mg/dL - High 140 mg/dL * Correction Factor: 20 mg/dL/unit * Nutritional / Prandial insulin per carb ratio of 1 unit per 7 grams CHO consumed * Overnight checks at 00,04 with same parameters * Please note that the plan above was derived based on current level of insulin resistance and hospital stress. These recommendations are appropriate for inpatient admission only. Plan of care upon discharge will need to be reassessed to avoid potential outpatient hypo/hyperglycemia. Thank you.
[2019-03-19] MEDS ORDERED: MODERATE STRESS LEVEL ONE (14:56)
[2019-03-19] MEDS ORDERED: INSULIN PROTOCOL GOAL RANGE ONE (14:56)
[2019-03-19] MEDS ORDERED: INSULIN HUMAN REGULAR PER UNIT 2 UNITS in SYRINGE 1.98 ML IV ONE (15:15)
[2019-03-19] MEDS ORDERED: INSULIN REGULAR 250 UNITS in SODIUM CHLORIDE 0.9% 247.5 ML IV SCH (15:15)
--- NOTE | 2019-03-19 15:38 | Hospitalist Progress Note ---
Date of Service March 19, 2019 Assessment & Plan (1) Pneumonia of both lower lobes: Patient is a 69 yr male who presents with cough, SOB, mild bibasilar infiltrates and chronic obstructive pulmonary disease exacerbation. Acute on Chronic COPD exacerbation Community Acquired Pneumonia CXR: Mild bibasilar parenchymal infiltrates. Negative Influenza Screen Check Procalcitonin Continue Doxy, Zosyn Day #2 Blood Cx:pending Titrate down Steroids as ble Continue Nebs Wean off Supplemental Oxygen as able DM II hold metformin and glipizide Check Hb A1C Continue Insulin therapy while hospitalized Monitor BGs HTN Continue Lisinopril monitor Alcoholism: On Gabapentin Protocol Continue Thiamine, Folic Acid Monitor for withdrawal [employer] Products to quit Tobacco Use Disorder Nicotine Patch [employer] to quit DVT Px: Heparin SQ Code Status Full code Disposition Expect to discharge home with HH Subjective Patient is seen and examined at bedside Reports cough is better Denies any chest pain, SOB, dizziness, nausea, abd pain Offers no other complaints Review of Systems Review of Systems: All systems reviewed & are unremarkable except as noted in HPI & below Physical Exam Physical Exam: Physical Exam: Vitals signs as noted above General Appearance:Moderately built and nourished, no apparent distress Head: normocephalic, Atraumatic Eyes: normal inspection, EOMI Neck: supple, Trachea midline Respiratory/Chest: Decreased breath sounds, B/L wheezing, No accessory muscle use Cardiovascular: S1, S2, No murmur Abdomen/GI:Soft, Non tender, Bowel sounds present Extremities/Musculoskelatal:normal inspection, no edema Neurologic/Psych:AAOX3, grossly no focal neurological deficits Skin: normal color, warm Results & Data Vital Signs (Past 12 Hours) Vital Signs Temp Pulse Pulse Resp BP BP Pulse Ox 03/19/19 12:57 89 18 91 03/19/19 11:20 36.4 C L 86 21 168/73 H 90 03/19/19 08:00 36.3 C L 77 18 149/83 H 88 L 03/19/19 07:34 66 03/19/19 07:08 71 18 90 03/19/19 05:14 86 20 145/86 H 92 Laboratory Results Short CBC 03/18/19 03/19/19 Range/Units 16:35 05:21 WBC 11.61 H 7.97 (4.8-10.8) K/uL Hgb 14.8 14.6 (14.0-18.0) g/dL Hct 41.9 L 41.3 L (42-52) % Plt Count 198 214 (130-400) K/uL BMP 03/18/19 03/19/19 16:35 05:21 Sodium 131 L 136 Potassium 4.1 3.3 L D Chloride 98 103 Carbon Dioxide 26 25 BUN 18 21 H Creatinine 1.36 1.56 H Glucose 174 H 322 H* Calcium 9.6 9.1 Cardiac Enzymes 03/18/19 Range/Units 16:35 Troponin I < 0.015 (0-0.045) ng/ml Liver Function 03/18/19 Range/Units 16:35 Total Bilirubin 0.7 (0.2-1) mg/dl AST 18 (15-37) U/L ALT 36 (12-78) U/L Alkaline Phosphatase 136 H (45-117) U/L Albumin 3.8 (3.4-5.0) gm/dl Urine 03/18/19 Range/Units 18:40 Urine Color Yellow Urine Appearance Clear (Clear) Urine pH 5.0 (4.5-7.5) Ur Specific Coy 1.021 (1.000-1.030) Urine Protein 2+ H (Negative) Urine Glucose (UA) 1+ H (Negative) (1) Pneumonia of both lower lobes Pneumonia type: due to unspecified organism Qualified Code(s): J18.9 - Pneumonia, unspecified organism
[2019-03-19] MEDS: methylPREDNISolone 40 MG in SYRINGE 0 ML IV SCH (17:16)
[2019-03-19 20:43] LABS: BUN Creatinine Ratio 17.6 (10-20); Calcium 9.2 mg/dl (8.5-10.1); Creatinine Clr Calc Pharmacy 46.3 ml/min; Est GFR (African American) 44.1; Est GFR (Non-African American) 38.1; Potassium 4.2 mmol/L (3.5-5.1)
[2019-03-19] MEDS: DONEPEZIL HCL 5 MG TAB PO SCH (21:21)
[2019-03-19] MEDS: INSULIN GLARGINE SOLOSTAR 100 UNITS/ML 3 ML PEN SC SCH (21:21)
[2019-03-19] MEDS: HEPARIN SOD 5,000 UNIT/0.5 ML VIAL SQ SCH (21:21)
[2019-03-20] MEDS ORDERED: INSULIN ASPART 100 UNITS/ML 3 ML PEN SC SCH
[2019-03-20] MEDS: LEVALBUTEROL 1.25MG/0.5ML NEB INH SCH ×3 (02:11→13:17)
[2019-03-20] MEDS: IPRATROPIUM BROMIDE NEB SOLN 0.02% 2.5 ML VIAL INH SCH ×3 (02:12→13:17)
[2019-03-20] MEDS ORDERED: Nursing to Pharmacy Communication ONE (02:43)
[2019-03-20] MEDS: GABAPENTIN 600 MG TAB PO SCH ×3 (03:07→08:15)
[2019-03-20] MEDS ORDERED: INSULIN ASPART 100 UNITS/ML 3 ML PEN SC ONE (04:00)
[2019-03-20] MEDS: methylPREDNISolone 40 MG in SYRINGE 0 ML IV SCH (04:58)
[2019-03-20] MEDS: HEPARIN SOD 5,000 UNIT/0.5 ML VIAL SQ SCH (08:03)
[2019-03-20] MEDS: INSULIN ASPART 100 UNITS/ML 3 ML PEN SC SCH ×2 (08:03→12:26)
[2019-03-20] MEDS: INSULIN GLARGINE SOLOSTAR 100 UNITS/ML 3 ML PEN SC SCH (08:04)
[2019-03-20] MEDS: THIAMINE HCL 100 MG in SYRINGE 9 ML IV SCH (08:04)
[2019-03-20] MEDS: FERROUS SULFATE 325 MG TAB PO SCH (08:05)
[2019-03-20] MEDS: NICOTINE 21 MG/24 HR TDSY TD SCH (08:05)
[2019-03-20] MEDS: CHOLECALCIFEROL 1,000 UNITS TAB PO SCH (08:05)
[2019-03-20] MEDS: CEROVITE ADV FORMULA TAB PO SCH (08:05)
[2019-03-20] MEDS: ASPIRIN 81 MG ECTAB PO SCH (08:05)
[2019-03-20] MEDS: PANCREAZE (LIPASE 10,500U) CAP PO SCH ×2 (08:05→12:27)
[2019-03-20] MEDS: ASCORBIC ACID 500 MG TAB PO SCH (08:06)
[2019-03-20] MEDS: MELOXICAM 7.5 MG TAB PO SCH (08:06)
[2019-03-20] MEDS: lisinopriL 20 MG TAB PO SCH (08:06)
[2019-03-20] MEDS: DOXYCYCLINE HYCLATE 100 MG in DEXTROSE 5% 100 ML IV SCH (08:11)
[2019-03-20] MEDS: PIPERACILLIN/TAZOBACTAM 3.375 GM in DEXTROSE 5% 100 ML IV SCH (08:11)
[2019-03-20] MEDS: FOLIC ACID 1 MG in SYRINGE 9.8 ML IV SCH (08:12)
[2019-03-20] MEDS ORDERED: INSULIN GLARGINE SOLOSTAR 100 UNITS/ML 3 ML PEN SC ONE (09:00)
[2019-03-20 09:01] LABS: Est GFR (African American) 65.6; Potassium 4.4 mmol/L (3.5-5.1)
[2019-03-20 09:02] LABS: BUN Creatinine Ratio 22.6 (10-20); Calcium 9.5 mg/dl (8.5-10.1); Creatinine Clr Calc Pharmacy 64.2 ml/min; Est GFR (Non-African American) 56.6
[2019-03-20 09:07] LABS: Estimated Average Glucose 232 mg/dl; Hemoglobin A1C 9.7 % (4.5-5.6)
[2019-03-20 09:42] LABS: Hematocrit (blood only) 38.1 % (42-52); Hemoglobin 13.5 g/dL (14.0-18.0); Mean Corpuscular Hemoglobin 31.8 pg (25-34); Mean Corpuscular Hgb Conc 35.4 g/dL (32-36); Mean Corpuscular Volume 89.6 fL (80-100); Mean Platelet Volume 9.4 fL (7.4-10.4); Platelet Count 244 K/uL (130-400); RDW Coefficient of Variation 12.8 % (11.5-14.5); RDW Standard Deviation 41.7 fL (36.4-46.3); Red Blood Count 4.25 M/uL (4.7-6.1); White Blood Count 20.83 K/uL (4.8-10.8)
[2019-03-20] MEDS ORDERED: predniSONE 20 MG TAB PO SCH (11:45)
--- NOTE | 2019-03-20 17:15 | Hospitalist Progress Note ---
Date of Service March 20, 2019 Assessment & Plan (1) Pneumonia of both lower lobes: Patient is a 69 yr male who presents with cough, SOB, mild bibasilar infiltrates and chronic obstructive pulmonary disease exacerbation. Acute on Chronic COPD exacerbation Community Acquired Pneumonia CXR: Mild bibasilar parenchymal infiltrates. 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 DVT Px: Heparin SQ Code Status Full code Disposition Patient left AGAINST MEDICAL ADVICE despite explaining and risks and consequences of not being treated Subjective Patient is seen and examined at bedside States feeling much better today Has chronic abdominal pain but prefers no further investigations States cough, shortness of breath improved Eager to get discharged Offers no other complaints Denies any chest pain, dizziness, nausea Review of Systems Review of Systems: All systems reviewed & are unremarkable except as noted in HPI & below Physical Exam Physical Exam: Physical Exam: Vitals signs as noted above General Appearance:Moderately built and nourished, no apparent distress Head: normocephalic, Atraumatic Eyes: normal inspection, EOMI Neck: supple, Trachea midline Respiratory/Chest: Decreased breath sounds, CTA, No accessory muscle use Cardiovascular: S1, S2, No murmur Abdomen/GI:Soft, mild tender, Bowel sounds present Extremities/Musculoskelatal:normal inspection, no edema Neurologic/Psych:AAOX3, grossly no focal neurological deficits Skin: normal color, warm Results & Data Vital Signs (Past 12 Hours) Vital Signs Temp Pulse Pulse Resp BP BP Pulse Ox 03/20/19 13:55 36.6 C 88 83 18 144/70 H 133/79 91 03/20/19 11:53 36.6 C 83 18 133/79 91 03/20/19 07:08 36.4 C L 69 18 144/70 H 93 Laboratory Results Short CBC 03/20/19 Range/Units 08:21 WBC 20.83 H (4.8-10.8) K/uL Hgb 13.5 L (14.0-18.0) g/dL Hct 38.1 L (42-52) % Plt Count 244 (130-400) K/uL BMP 03/19/19 03/20/19 19:56 08:21 Sodium 139 137 Potassium 4.2 D 4.4 Chloride 108 H 109 H Carbon Dioxide 24 22 BUN 32 H D 29 H Creatinine 1.79 H 1.29 D Glucose 288 H 209 H Calcium 9.2 9.5 (1) Pneumonia of both lower lobes Pneumonia type: due to unspecified organism Qualified Code(s): J18.9 - Pneumonia, unspecified organism
--- NOTE | 2019-03-20 17:16 | Discharge Summary ---
Date of Service March 20, 2019 Admission HPI Per Admitting Provider CHIEF COMPLAINT: Shortness of breath. HISTORY OF PRESENT ILLNESS: A 69-year-old male with past medical history significant for diabetes, hypertension as per patient, denies any cardiac problems, denies any lung problems, denies any kidney problems. He goes to [place]. He lives alone. He smokes 1 pack of cigarettes for 50 years. Drinks alcohol, 6 beers almost every day whenever he can go out, but in last 1 week he did not go out and he is not drinking since last 1 week as per the patient, but is not getting any withdrawal symptoms. Since last 5 days, he is getting short of breath, once in a while cough, not bringing any phlegm. He thinks maybe he had a fever at home and was getting more short of breath. He got worried and came to the hospital and found to have mild bibasilar infiltrates, possible chronic obstructive pulmonary disease exacerbation. Received breathing treatments and steroids and antibiotics. Currently, somewhat feeling better. Oxygen saturations are okay. Denies any headache, no blurred vision, no earache, no runny nose, has some sore throat, no difficulty swallowing. No odynophagia. Did not have much appetite for the last 5 days, but today he is feeling hungry. Denies any chest pain. No recent weight gain, weight loss. No sweating, no nausea, no vomiting, no abdominal pain. Normal bowel and bladder movements. No blood in stools or black stools. No burning micturition, no hematuria. No swelling in the legs, no rash. Currently resting comfortably and hemodynamically stable. Admission Exam Per Admitting Provider PHYSICAL EXAMINATION: GENERAL: The patient is of moderate build, not in acute distress. VITAL SIGNS: Temperature 37.2, pulse 82, respiratory rate 15, blood pressure 155/82, oxygen 93% on 2 liters. HEENT: No pallor, no icterus. Pupils equal, round, reactive to light. NECK: No JVD, no neck masses, no carotid bruit. CARDIOVASCULAR: S1, S2 heard, regular rate and rhythm, no murmur, no gallop. RESPIRATORY SYSTEM: Normal AP diameter. No accessory muscle use. Bilateral rhonchi. No wheezing. ABDOMEN: Soft, bowel sounds present, nontender. No distention. CENTRAL NERVOUS SYSTEM: Cranial nerves II-XII grossly intact, nonfocal. EXTREMITIES: No edema, no erythema. Principal Diagnosis Acute COPD exacerbation Community-acquired pneumonia Discharge Data Allergies Allergy/AdvReac Type Severity Reaction Status Date / Time No Known Allergies Allergy Unverified 03/18/19 20:00 Consultations 03/18/19 18:44 ED Decision to Admit Stat 03/18/19 21:34 Consult Case Management - Discharge Planning Routine Consult Case Management - Discharge Planning Routine 03/20/19 11:57 HIM [Consult Health Information Management] Stat Procedures Performed CXR: Mild bibasilar parenchymal infiltrates. Hospital Course (1) Pneumonia of both lower lobes: Patient is a 69 yr male who presents with cough, SOB, mild bibasilar infiltrates and chronic obstructive pulmonary disease exacerbation. Acute on Chronic COPD exacerbation Community Acquired Pneumonia CXR: Mild bibasilar parenchymal infiltrates. 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 DVT Px: Heparin SQ Code Status Full code Disposition Patient left AGAINST MEDICAL ADVICE despite explaining and risks and consequences of not being treated Total Time Total Time Spent Total Time Spent (In Minutes): 25 minutes Total Time Includes: Examination of the Patient, Discharge Planning, Medication Reconciliation, Communication With Other Providers and Other Discharge Plan Discharge Items Patient Disposition: Against Medical Advice Reason For Visit: SOB Follow-up/Referrals: [facility] [Physician] - [facility] Medications and DC Order Prescriptions: No Action albuterol sulfate 90 mcg/actuation Hfa Aerosol Inhaler 2 inh INHALATION QID PRN (Reason: Shortness Of Breath Or Wheezing) RF: 0 acetaminophen [Tylenol] 325 mg Tablet 650 mg PO BID PRN (Reason: Fever Or Pain) RF: 0 ascorbic acid (vitamin C) 500 mg Tablet 500 mg PO DAILY RF: 0 aspirin [Aspir-81] 81 mg Tablet,Delayed Release (Dr/Ec) 81 mg PO DAILY RF: 0 cholecalciferol (vitamin D3) 3,000 unit Tablet 6,000 unit PO DAILY RF: 0 Creon 36,000-114,000- 180,000 unit Capsule,Delayed Release(Dr/Ec) 2 cap PO TIDM RF: 0 Creon 36,000-114,000- 180,000 unit Capsule,Delayed Release(Dr/Ec) 1 cap PO .DAILY W/ SNACKS RF: 0 donepezil 5 mg Tablet 5 mg PO HS RF: 0 ferrous sulfate 325 mg (65 mg iron) Tablet 325 mg PO DAILY RF: 0 gabapentin 300 mg Capsule 300 mg PO TID RF: 0 glipizide 5 mg Tablet 5 mg PO DAILY RF: 0 meclizine 12.5 mg Tablet 25 mg PO QID PRN (Reason: Dizziness Or Vertigo) RF: 0 lisinopril 20 mg Tablet 20 mg PO DAILY RF: 0 melatonin 3 mg Tablet 3 mg PO HS PRN (Reason: Insomnia) RF: 0 meloxicam 15 mg Tablet 7.5 mg PO DAILY RF: 0 thiamine HCl (vitamin B1) 100 mg Tablet 100 mg PO DAILY RF: 0 metformin 1,000 mg Tablet 1,000 mg PO BID RF: 0 multivitamin with minerals [Multiple Vitamin-Minerals] Tablet 1 tab PO DAILY RF: 0 trazodone 150 mg Tablet 150 mg PO HS PRN (Reason: Insomnia) RF: 0 Krames/Other Patient Handouts: Hyperglycemia, Hypoglycemia, Blood Sugar Check Admission Data Admit Date/Time: 03/18/19 20:01 Attending Provider: Woodrow Oconnell Admit Provider: Live Wong Primary Care Provider: Victoria Pablo Other Providers: Reny Rogers [place] Date/Time DO NOT enter until pt leaves facility: 03/20/19 13:45
[2019-03-22] MEDS ORDERED: GABAPENTIN 600 MG TAB PO SCH (10:00)
[2019-03-22] MEDS ORDERED: GABAPENTIN 300 MG CAP PO SCH (21:00)
== END 2019-03-20 13:45 | disposition left against medical advice (07) | DRG 190 ==
LOC: ED 16:48 → 2W 20:01